=== PATIENT | female | born 2000 | race Caucasian/White ===

== ENCOUNTER 2018-05-26 01:38 | Emergency (ER) | payer BC ==
[2018-05-26] MEDS ORDERED: ONDANSETRON HCL INJ/PF 4 MG/2 ML SDV IV ONE (01:59)
[2018-05-26] MEDS ORDERED: NORMAL SALINE 1000 ML 1,000 ML IV ONE (02:00)
--- NOTE | 2018-05-26 02:08 | ER Document Report ---
ED General - General Chief Complaint: Flank Pain Stated Complaint: FLANK PAIN Time Seen by Provider: 05/26/18 01:56 Notes: Patient is a 17-year-old female presents with complaint of pain in her lower abdomen that radiates around to her back on both sides. She has had some dysuria. No fevers. She has had some nausea vomiting that started tonight. No history of kidney stones. She only takes control. No other medications. No abnormal vaginal discharge or bleeding. TRAVEL OUTSIDE OF THE [place] IN LAST 30 DAYS: No - Related Data Allergies/Adverse Reactions: No Known Allergies Allergy (Unverified 05/26/18 01:42) Past Medical History - Social History Smoking Status: Never Smoker Chew tobacco use (# tins/day): No Frequency of alcohol use: None Drug Abuse: None Family History: Reviewed & Not Pertinent Patient has suicidal ideation: No Patient has homicidal ideation: No Renal/ Medical History: Denies: Hx Peritoneal Dialysis Review of Systems - Review of Systems Notes: My Normal Review Basic REVIEW OF SYSTEMS: CONSTITUTIONAL : Denies fever, chills, or sweats. Denies recent illness. EENT: Denies eye, ear, throat, or mouth pain or symptoms. Denies nasal or sinus congestion. RESPIRATORY: Denies cough, cold, or chest congestion. Denies shortness of breath, difficulty breathing, or wheezing. GASTROINTESTINAL: Abdominal pain. Vomiting. GENITOURINARY: Dysuria FEMALE GENITOURINARY: Denies vaginal bleeding, abnormal or irregular periods. MUSCULOSKELETAL: Denies neck or back pain or joint pain or swelling. SKIN: Denies rash or skin lesions. NEUROLOGICAL: Denies altered mental status or loss of consciousness. Denies headache. Denies weakness or paralysis or loss of use of either side. Denies problems with gait or speech. Denies sensory or motor loss. ALL OTHER SYSTEMS REVIEWED AND NEGATIVE. Physical Exam - Vital signs Vitals: Temp Pulse Resp BP Pulse Ox 98.4 F 86 16 101/49 L 98 05/26/18 01:49 05/26/18 01:49 05/26/18 01:49 05/26/18 01:49 05/26/18 01:49 - Notes Notes: General Appearance: Well nourished, alert, cooperative, no acute distress, no obvious discomfort. Vitals: reviewed, See vital signs table. Head: no swelling or tenderness to the head Eyes: PERRL, EOMI, Conjuctiva clear Mouth: No decreasd moisture Throat: No tonsillar inflammation, No airway obstruction, No lymphadenopathy Neck: Supple, no neck tenderness, No thyromegaly Lungs: No wheezing, No rales, No rhonci, No accessory muscle use, good air exchange bilaterally. Heart: Normal rate, Regular rythm, No murmur, no rub Abdomen: Normal BS, soft, No rigidity, pain to palpation across the entire lower abdomen. , No guarding, no rebound, no abdominal masses, no organomegaly Extremities: strength 5/5 in all extremities, good pulses in all extremities, no swelling or tenderness in the extremities, no edema. Skin: warm, dry, appropriate color, no rash Neuro: speech clear, oriented x 3, normal affect, responds appropriately to questions. Course - Re-evaluation Re-evalutation: 05/26/18 05:23 Patient appears to have pyelonephritis. She does have a leukocytosis but no fever and her vital signs are stable. She looks and feels much improved. Ultrasound shows no evidence of hydronephrosis. I do not suspect kidney stone at this time. Patient is safe to be discharged home. He is given dose of Rocephin. Urine has been sent for culture. She is encouraged to return to ER immediately if she has fevers, recurrent vomiting, severe pain, or she feels unwell. Patient agrees with plan will be discharged home. Dictation of this chart was performed using voice recognition software; therefore, there may be some unintended grammatical errors. - Vital Signs Vital signs: Temp Pulse Resp BP Pulse Ox 98.9 F 86 16 110/70 97 05/26/18 05:00 05/26/18 01:49 05/26/18 05:00 05/26/18 05:00 05/26/18 05:00 - Laboratory Result Diagrams: 05/26/18 02:15 05/26/18 02:15 Laboratory results interpreted by me: 05/26/18 05/26/18 02:15 02:20 WBC 17.2 H Absolute Neutrophils 13.3 H Urine Protein 100 H Urine Blood MODERATE H Urine Nitrite POSITIVE H Urine Urobilinogen 4.0 H Ur Leukocyte Esterase TRACE H Discharge - Discharge Clinical Impression: Pyelonephritis Condition: Good Disposition: HOME, SELF-CARE Additional Instructions: PYELONEPHRITIS: Your evaluation shows evidence of pyelonephritis. This is an infection in the kidney. Typical symptoms are fever, pain in the flank, pain on urination, and frequent urination. Many cases of pyelonephritis can be treated at home. Hospital care may be necessary for patients who are very ill, or elderly or . Pyelonephritis is treated with antibiotics. Be sure to take all the medication as prescribed. Drink plenty of liquids (about three quarts per day) . You may take acetaminophen for fever. You should feel significantly improved within two days. You should have a recheck of your urine in about one week to insure that the infection is gone. Return for a re-examination if your symptoms worsen in any way -- such as high fever, shaking chills, severe weakness or dizziness, severe pain, or inability to pass your urine. TORADOL INJECTION: You have been given an injection of ketorolac tromethamine (Toradol). This is an excellent, safe drug for pain control. It also has potent antiinflammatory action. You should have significant pain relief within about one hour. Toradol is not addicting and is non-sedating. It does not interfere with driving or work. Call or return if you develop itching, hives, shortness of breath, or rash. ANTINAUSEA MEDICATION: You have been given a medication to suppress nausea and vomiting. This type of medication can be given as a shot, pill, or suppository. It will usually last for many hours. Pills and shots usually last six to eight hours, suppositories last about 12 hours. For the typical illness, only one or two doses of the medication may be necessary. Mild lightheadedness may occur. This type of medicine can cause drowsiness. Do not drive or operate dangerous machinery while under its influence. Do not mix with alcohol. See your doctor at once if you have muscle spasms or tightness, or uncontrollable motions (particularly of the neck, mouth, or jaw). Persistent vomiting or severe lightheadedness should also be evaluated by the physician. ANTIBIOTIC THERAPY: You have been given an antibiotic prescription. It's important that you take all the medication, unless instructed otherwise by your physician. Failure to complete the entire course can result in relapse of your condition. Common side effects of antibiotics include nausea, intestinal cramping, or diarrhea. Women may develop vaginal yeast infections, and babies can get yeast (thrush) in the mouth following the use of antibiotics. Contact your physician if you develop significant side effects from this medication. Allergy to this antibiotic can result in hives, wheezing, faintness, or itching. If symptoms of allergy occur, stop the medication and call the doctor. ROCEPHIN: You have been given an injection of an antibiotic called Rocephin ( ceftriaxone). Sometimes the injection must be combined with antibiotic pills. For some infections, such as an uncomplicated ear infection, Rocephin provides all the antibiotic that's needed. The antibiotic will be in your body for about two days. For serious infections, we usually repeat doses of Rocephin daily. Side effects are very unusual following a shot. Women may develop vaginal yeast infections, and babies can get yeast (thrush) in the mouth following the use of antibiotics. Contact your physician if you have symptoms with this medication. Allergy to this antibiotic can result in hives, wheezing, faintness, or itching. If symptoms of allergy occur, call the doctor at once. CEPHALEXIN: The antibiotic you've been prescribed is a member of the cephalosporin class. This type of antibiotic covers a wide variety of infections, including those of the skin, lungs, and urinary tract. It's useful for staph infections. This antibiotic is slightly similar to the penicillin family. In rare cases , a person who is allergic to penicillin will also be allergic to this medication. If you have had a severe allergic reaction to penicillin, and have not taken this antibiotic since that time, notify your doctor. Antibiotics which cover many germs ("broad spectrum" antibiotics) are more likely to cause diarrhea or "yeast" infections. Women prone to vaginal yeast problems may suffer an attack after taking this antibiotic. In infants, oral thrush (white spots "stuck" on the cheek) or yeast diaper rash may result. See your doctor if these problems occur. Call at once if you develop itching, hives , shortness of breath, or lightheadedness. USE OF ACETAMINOPHEN (Tylenol): Acetaminophen may be taken for pain relief or fever control. It's much safer than aspirin, offering a wider range of "safe" dosages. It is safe during . Some brand names are Tylenol, Panadol, Datril, Anacin 3, Tempra, and Liquiprin. Acetaminophen can be repeated every four hours. The following are maximum recommended dosages: >89 pounds or adults 650 mg to 900 mg Acetaminophen can be repeated every four hours. Maximum dose not to exceed 4000 mg a day. FOLLOW-UP CARE: If you have been referred to a physician for follow-up care, call the physician s office for an appointment as you were instructed or within the next two days. If you experience worsening or a significant change in your symptoms, notify the physician immediately or return to the Emergency Department at any time for re-evaluation. Please follow-up with a doctor in approximately 2 days for reevaluation. Please return to ER immediately if you have recurrent vomiting, fevers, severe pain, or feel that you are worsening in any way. Prescriptions: Cephalexin Monohydrate [Keflex 500 mg Capsule] 500 mg PO BID 7 Days capsule Ondansetron [Zofran Odt 4 mg Tablet] 1 tab PO Q4H PRN #15 tab.rapdis PRN Reason: For Nausea/Vomiting Forms: Return to Work
[2018-05-26 02:27] LABS: ABSOLUTE EOSINOPHILS # (AUTO) 0.2 10^3/uL (0.0-0.6); ABSOLUTE LYMPHOCYTES (AUTO) 2.4 10^3/uL (0.5-4.7); ABSOLUTE MONOCYTES (AUTO) 1.2 10^3/uL (0.1-1.4); ABSOLUTE NEUT (AUTO) 13.3 10^3/uL (1.7-8.2); BASOPHILS % (AUTO) 0.2 % (0-2); EOSINOPHILS % (AUTO) 0.9 % (0-6); HEMATOCRIT 37.7 % (36.0-47.0); HEMOGLOBIN 12.6 g/dL (12.0-15.5); MEAN CORPUSCULAR HEMOGLOBIN 29.7 pg (27.0-33.4); MEAN CORPUSCULAR HGB CONC 33.5 g/dL (32.0-36.0); MEAN CORPUSCULAR VOLUME 89 fl (80-97); MONOCYTES % (AUTO) 7.2 % (3-13); PLATELET COUNT 269 10^3/uL (150-450); RED BLOOD COUNT 4.26 10^6/uL (3.72-5.28); RED CELL DISTRIBUTION WIDTH 13.4 % (11.5-14.0); SEGMENTED NEUTROPHILS % (AUTO) 77.7 % (42-78); TOTAL CELLS COUNTED % (AUTO) 100 %; WHITE BLOOD COUNT 17.2 10^3/uL (4.0-10.5)
[2018-05-26 02:43] LABS: ANION GAP 10 (5-19); BLOOD UREA NITROGEN 10 mg/dL (7-20); CALCIUM 9.2 mg/dL (8.4-10.2); CARBON DIOXIDE 24 mmol/L (22-30); CHLORIDE 106 mmol/L (98-107); GLUCOSE 109 mg/dL (75-110); POTASSIUM 3.6 mmol/L (3.6-5.0); SODIUM 140.2 mmol/L (137-145)
[2018-05-26 02:46] LABS: APPEARANCE,URINE SLIGHTLY-CLOUDY; BILIRUBIN,URINE NEGATIVE (NEGATIVE); CALCIUM OXALATE CRYSTALS,URINE RARE /HPF; COLOR,URINE AMBER; GLUCOSE, URINE NEGATIVE (NEGATIVE); KETONES,URINE NEGATIVE (NEGATIVE); LEUKOCYTE ESTERASE,URINE TRACE (NEGATIVE); NITRITE,URINE POSITIVE (NEGATIVE); PROTEIN,URINE 100 mg/dL (NEGATIVE); URINE SPECIFIC GRAVITY 1.012
[2018-05-26] MEDS ORDERED: CEFTRIAXONE INJ 1000 MG VIAL IV ONE (02:59)
[2018-05-26] MEDS ORDERED: KETOROLAC TROMETHAMINE INJ/PF 30 MG/1 ML SDV IV ONE (03:58)
--- NOTE | 2018-05-26 04:48 | RADIOLOGY REPORT (SQ) ---
EXAM DESCRIPTION: US RETROPERITONEUM COMPLETED DATE/TME: 05/26/2018 03:01 EXAM DESCRIPTION: CLINICAL HISTORY: uti, flank pain COMPARISON: None. TECHNIQUE: Real-time sonographic images of the retroperitoneum were obtained using a curved multihertz transducer. FINDINGS: The visualized portions of the aorta and IVC are visualized. The right kidney measures 10.0 cm in length. The left kidney measures 9.8 cm in length. No solid renal mass, shadowing renal calculi, or hydronephrosis. The urinary bladder is unremarkable. Bilateral ureteral jets identified. IMPRESSION: No sonographic abnormality of the kidneys identified.
[2018-05-26] MEDS ORDERED: ONDANSETRON ODT 4 MG TAB (6 TAB/ER DISP) PO PRN (04:54)
[2018-05-26 05:15] VITALS: BP 110/70
== END 2018-05-26 05:15 | disposition home or self-care (01) ==
LOC: ER 01:38
DX: N12 Tubulo-interstitial nephritis, not specified as acute or chronic (principal); R10.30 Lower abdominal pain, unspecified; R30.0 Dysuria; R11.2 Nausea with vomiting, unspecified; Z79.3 Long term (current) use of hormonal contraceptives
CPT/HCPCS: 99284; 96361; 96374; 96375; 36415; 87086; 84703; 85025; 87088; 80048; 81001; 87186; 76770; J1885; J0696; J2405; J7030